=== PATIENT | female | born 1990 | race Caucasian/White ===

== ENCOUNTER 2019-03-07 10:58 | Emergency (ER) | payer MEDICAID, SELFPAY ==
[~2019-03-07] VITALS: Ht 157.5 cm; Wt 59.1 kg
[2019-03-07] MEDS ORDERED: FLUT16H NASAL (11:16)
[2019-03-07 13:20] VITALS: BP 116/65
== END 2019-03-07 13:23 | disposition home or self-care (01) ==
LOC: EMS 11:00
DX: R21 Rash and other nonspecific skin eruption (principal)

== ENCOUNTER 2019-04-11 16:05 | Emergency (ER) | payer MEDICAID ==
[~2019-04-11] VITALS: Ht 167.6 cm; Wt 61.8 kg
[~2019-04-11 16:05] MED LIST: FLUT16H NASAL
[2019-04-11 20:32] VITALS: BP 109/65
== END 2019-04-11 20:38 | disposition home or self-care (01) ==
LOC: EMS 16:05
DX: S93.602A Unspecified sprain of left foot, initial encounter (principal); X58.XXXA Exposure to other specified factors, initial encounter; Y93.89 Activity, other specified; Y92.89 Other specified places as the place of occurrence of the external cause; Y99.8 Other external cause status

== ENCOUNTER 2020-08-21 19:53 | Emergency (ER) | payer MEDICAID ==
[~2020-08-21] VITALS: Ht 157.5 cm; Wt 59.1 kg
[2020-08-21 20:30] VITALS: BP 120/64
== END 2020-08-21 21:00 | disposition home or self-care (01) ==
LOC: EMS 19:56
DX: U07.1 COVID-19 (principal); R06.02 Shortness of breath; F41.9 Anxiety disorder, unspecified
CPT/HCPCS: 99283; Z7502